=== PATIENT | female | born 1940 | race American Indian/Alaskan Native ===

== ENCOUNTER 2016-12-15 06:05 | Observation (INO) | payer MEDICARE, BC ==
[2016-12-15 06:59] VITALS: BMI 24.3
[2016-12-15] MEDS ORDERED: Methylene Blue 10 mg/ml (1ml) Inj ONE ×2 (07:23→11:24)
--- NOTE | 2016-12-15 09:29 | CP.SDSHP ---
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 EGD/EUS/EMR Pt. Evaluated Today:Candidate for Anesthesia & Procedure: Yes Short Stay Discharge - Short Stay Discharge Admitting Diagnosis/Reason for Visit: DUODENAL ADENOCARCINOMA,CA OF STOMACH Disposition: HOME/ ROUTINE
[2016-12-15 10:03] LABS: BASO % 0.6 % (0.0-2.0); EOS # 0.1 K/uL (0.0-0.7); EOS % 1.3 % (0.0-4.0); HEMOGLOBIN 10.7 g/dL (11.0-16.0); LYMPH # 1.4 K/uL (1.0-4.3); MEAN CORPUSCULAR HEMOGLOBIN 26.2 pg (27.0-31.0); MEAN CORPUSCULAR HGB CONC 32.3 g/dL (33.0-37.0); MEAN PLATELET VOLUME 9.5 fL (7.2-11.7); MONO # 0.9 K/uL (0.0-0.8); MONO % 11.2 % (0.0-10.0); NEUT # 5.2 K/uL (1.8-7.0); NEUT % 68.9 % (50.0-75.0); NRBC % 0.3 % (0.0-2.0); RBC 4.08 Mil/uL (3.80-5.20); RED CELL DISTRIBUTION WIDTH 17.3 % (11.5-14.5)
[2016-12-15] MEDS ORDERED: Etomidate 20 mg/10ml Inj IV ONE (10:06)
[2016-12-15 10:07] LABS: MEAN CELL VOLUME 80.9 fL (81.0-99.0); WHITE BLOOD COUNT 7.6 K/uL (4.8-10.8)
[2016-12-15] MEDS ORDERED: Lidocaine 4% (Laryng-O-Jet) Kit MM ONE (10:13)
[2016-12-15 10:20] LABS: CALCIUM 8.8 mg/dl (8.6-10.4)
[2016-12-15] MEDS ORDERED: Naloxone 0.4 mg/ml Inj (Adult) ONE (12:12)
--- NOTE | 2016-12-15 15:21 | CP.PCM.CON ---
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 Admitted post procedure for observation. Recently has developed cirrhosis with increasing abdominal ascites accumulation. PMH: ESRD DM 2 HTN CAD AFIB CARCINOID TUMOR DUODENUM CIRRHOSIS BREAST CA PSH: AV FISTULA 2 CARDIAC STENTS HYSTERECTOMY IVC FILTER POLYPECTOMIES X 2 Review of Systems - Constitutional Constitutional: Fatigue, Malaise, Weight Loss - EENT Eyes: absent: As Per HPI, Blind Spots, Blurred Vision, Change in Vision, Decreased Night Vision, Diplopia, Discharge, Dry Eye, Exophthalmos, Floaters, Irritation, Itchy Eyes, Loss of Peripheral Vision, Pain, Photophobia, Requires Corrective Lenses, Sees Flashes, Spots in Vision, Tunnel Vision, Other Visual Disturbances, Loss of Vision, Other Ears: absent: As Per HPI, Decreased Hearing, Ear Discharge, Ear Pain, Tinnitus, Abnormal Hearing, Disequilibrium, Dizziness, Other Nose/Mouth/Throat: absent: As Per HPI, Epistaxis, Nasal Congestion, Nasal Discharge, Nasal Obstruction, Nasal Trauma, Nose Pain, Post Nasal Drip, Sinus Pain, Sinus Pressure, Bleeding Gums, Change in Voice, Dental Pain, Dry Mouth, Dysphagia, Halitosis, Hoarsness, Lip Swelling, Mouth Lesions, Mouth Pain, Odynophagia, Sore Throat, Throat Swelling, Tongue Swelling, Facial Pain, Neck Pain, Neck Mass, Other - Breasts Breasts: As Per HPI - Cardiovascular Cardiovascular: Chest Pain, Dyspnea on Exertion, Edema, Irregular Heart Rhythm - Respiratory Respiratory: Cough, Dyspnea on Exertion, Pain with Coughing - Gastrointestinal Gastrointestinal: As Per HPI, Abdominal Pain, Bloating, Nausea - Genitourinary Genitourinary: As Per HPI - Musculoskeletal Musculoskeletal: Muscle Weakness, Myalgias, Stiffness - Integumentary Integumentary: Dry Skin - Neurological Neurological: Weakness - Psychiatric Psychiatric: Depression Past Patient History - Tetanus Immunizations Tetanus Immunization: Unknown - Past Medical History & Family History Past Medical History?: Yes Past Family History: Reviewed and not pertinent - Past Social History Smoking Status: Never Smoked Chewing Tobacco Use: No Cigar Use: No Alcohol: None Drugs: Denies Home Situation {Lives}: Correction - CARDIAC Hx Cardiac Disorders: Yes Hx Cardia Arrhythmia: Yes (A FIB.) Hx Circulatory Problems: Yes (ACUTE ISCHEMIC HEART DISEASE) Hx Heart Attack: No Hx Hypercholesterolemia: Yes Hx Hypertension: Yes Hx Peripheral Vascular Disease: Yes (NICK. 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 Hx Glaucoma: Yes - RENAL Hx Chronic Kidney Disease: Yes Type of Dialysis Access: LEFT ARM SHUNT Date of Last Dialysis Treatment: 12/13/16 Hx Renal Failure: Yes - ENDOCRINE/METABOLIC Hx Endocrine Disorders: Yes Hx Diabetes Mellitus Type 2: Yes Hx Hypothyroidism: Yes - HEMATOLOGICAL/ONCOLOGICAL Hx Blood Transfusions: No - INTEGUMENTARY Hx Dermatological Problems: No - MUSCULOSKELETAL/RHEUMATOLOGICAL Hx Falls: No Hx Fractures: No - GASTROINTESTINAL Hx Gastrointestinal Disorders: Yes Other/Comment: DUODENAL CARCINOMA; CA STOMACH - GENITOURINARY/GYNECOLOGICAL Hx Genitourinary Disorders: Yes Other/Comment: ca-right breast - PSYCHIATRIC Hx Psychophysiologic Disorder: Yes Hx Depression: Yes Hx Emotional Abuse: No Hx Physical Abuse: No - SURGICAL HISTORY Hx Arteriovenous Shunt: Yes (LEFT ARM) Hx Cataract Extraction: Yes ([facility]) Hx Cholecystectomy: Yes Hx Eye Surgery: Yes (DETACHED RETINA RIGHT EYE) Hx Hysterectomy: Yes Hx Vascular Surgery: Yes (LEFT ARM SHUNT) - ANESTHESIA Hx Anesthesia: Yes Hx Anesthesia Reactions: No Hx Malignant Hyperthermia: No Has any member of the family had a problem w/ anesthesia?: No Meds Allergies/Adverse Reactions: Allergies Allergy/AdvReac Type Severity Reaction Status Date / Time No Known Allergies Allergy Verified 12/15/16 06:59 Physical Exam - Constitutional Appears: Older Than Stated Age, Chronically Ill - Head Exam Head Exam: ATRAUMATIC, NORMAL INSPECTION - Eye Exam Eye Exam: EOMI, Normal appearance - Neck Exam Neck exam: Positive for: Normal Inspection. Negative for: Tenderness - Respiratory Exam Respiratory Exam: Rales, NORMAL BREATHING PATTERN - Cardiovascular Exam Cardiovascular Exam: Irregular Rhythm, +S1 - GI/Abdominal Exam GI & Abdominal Exam: Distended, Soft, Tenderness - Extremities Exam Extremities exam: Positive for: tenderness. Negative for: pedal edema - Neurological Exam Neurological exam: Alert, Oriented x3 - Psychiatric Exam Psychiatric exam: Depressed - Skin Skin Exam: Dry, Warm Results - Vital Signs Recent Vital Signs: Last Vital Signs Temp 99.2 F 12/15/16 12:20 Pulse 100 H 12/15/16 12:20 Resp 15 12/15/16 12:20 BP 95/49 L 12/15/16 12:20 Pulse Ox 100 12/15/16 12:20 - Labs Result Diagrams: 12/15/16 10:00 12/15/16 10:00 Labs: Laboratory Results - last 24 hr 12/15/16 12/15/16 12/15/16 06:49 10:00 10:00 WBC 7.6 D RBC 4.08 Hgb 10.7 L Hct 33.0 L MCV 80.9 L D MCH 26.2 L MCHC 32.3 L RDW 17.3 H Plt Count 205 MPV 9.5 Neut % (Auto) 68.9 Lymph % (Auto) 18.0 L Will % (Auto) 11.2 H Eos % (Auto) 1.3 Baso % (Auto) 0.6 Neut # 5.2 Lymph # 1.4 Will # 0.9 H Eos # 0.1 Baso # 0.0 Sodium 135 Potassium 3.7 Chloride 93 L Carbon Dioxide 28 Anion Gap 18 BUN 11 Creatinine 3.3 H Est GFR ( Amer) 16 Est GFR (Non-Af Amer) 14 POC Glucose (mg/dL) 199 H Random Glucose 148 H Calcium 8.8 Assessment & Plan (1) Type 2 diabetes mellitus with diabetic nephropathy Status: Acute (2) Hypertensive chronic kidney disease with stage 5 chronic kidney disease or end stage renal disease Status: Acute (3) End stage renal disease on dialysis Status: Chronic (4) Hypertension Status: Chronic (5) Malignant carcinoid tumor of duodenum Status: Acute - Assessment and Plan (Free Text) Plan: Dialysis TTS Adequate fluid removal Consider paracentesis as ascites severe
[2016-12-15] MEDS ORDERED: Albuterol 0.083% Inhal Sol (2.5 mg/3 mL) UD INH PRN (16:17)
[2016-12-15] MEDS ORDERED: Metoprolol Succinate 25 mg XL Tab PO SCH (16:19)
[2016-12-15] MEDS ORDERED: ALBUTEROL IH SCH (18:00)
[2016-12-15] MEDS ORDERED: Budesonide 0.5 mg/2 ml Inhal Susp UD INH SCH (20:00)
[2016-12-15] MEDS ORDERED: Oxycodone/Acetaminophen 5/325 mg Tab PO PRN (21:12)
[2016-12-15 21:25] LABS: INR 1.4; PROTHROMBIN TIME 15.9 SECONDS (9.7-12.2)
[2016-12-15] MEDS ORDERED: Latanoprost 2.5 ml Opht Soln OU SCH (22:00)
--- NOTE | 2016-12-15 22:32 | CP.PCM.CON ---
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 Patient with recurrent anemia due to occult blood loss while on ASA/Plavix or Effient due to Afib. Had DVT requiring [place] filter two [place] [facility] 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 She was referred to Dr Lindsey for EUS and possible EMR as she was deemed to not be a surgical candidate on referral to Surgical Oncology at [facility]. Patient had successful EMR of duodenal lesion and several gastric nodules this am. Admitted for observation by Dr Lindsey due to bleeding risk. Antiplatelet drugs to be held for two days as per his operative note. (ordered on admission to start in am) No pain, bleeding or melena since admission. Patient has had known HCV for the past twenty years that I have cared for her and due to ribavirin toxicity in the past and dialysis precluded the ability to eradicate the virus until Zepatier was approved and given to patient with success. No known varices or portal hypertension. She is aware the duodenal lesion is cancer and that the EMR may not be curative even though successful. Patient complains of increasing abdominal pain, swelling and distension. Ascites was noted on recent CT Scan. Review of Systems - Cardiovascular Cardiovascular: Edema. absent: Chest Pain, Dyspnea - Respiratory Respiratory: absent: Cough, Dyspnea, Dyspnea on Exertion - Gastrointestinal Gastrointestinal: As Per HPI, Abdominal Pain Past Patient History - Tetanus Immunizations Tetanus Immunization: Unknown - Past Medical History & Family History Past Medical History?: Yes Past Family History: Reviewed and not pertinent - Past Social History Smoking Status: Never Smoked Chewing Tobacco Use: No Cigar Use: No Alcohol: None Drugs: Denies Home Situation {Lives}: Alf - CARDIAC Hx Cardiac Disorders: Yes Hx Cardia Arrhythmia: Yes (A FIB.) Hx Circulatory Problems: Yes (ACUTE ISCHEMIC HEART DISEASE) Hx Heart Attack: No Hx Hypercholesterolemia: Yes Hx Hypertension: Yes Hx Peripheral Vascular Disease: Yes (NICK. 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 Hx Glaucoma: Yes - RENAL Hx Chronic Kidney Disease: Yes Type of Dialysis Access: LEFT ARM SHUNT Date of Last Dialysis Treatment: 12/13/16 Hx Renal Failure: Yes - ENDOCRINE/METABOLIC Hx Endocrine Disorders: Yes Hx Diabetes Mellitus Type 2: Yes Hx Hypothyroidism: Yes - HEMATOLOGICAL/ONCOLOGICAL Hx Anemia: Yes Hx Blood Transfusions: Yes Hx Blood Transfusion Reaction: No Hx Cancer: Yes (Duodenal adenocarcinoma by biopsy 08/2016, Breast Cancer ) Hx Cirrhosis: Yes Hx Hepatitis A: No Hx Hepatitis B: No Hx Hepatitis C: Yes (SVR achieved with Zepatier 2015) Hx Human Immunodeficiency Virus (HIV): No Other/Comment: Gastric carcinoid tumors. Intramucosal adenocarcinoma of duodenum - INTEGUMENTARY Hx Dermatological Problems: No - MUSCULOSKELETAL/RHEUMATOLOGICAL Hx Falls: No Hx Fractures: No - GASTROINTESTINAL Hx Gastrointestinal Disorders: Yes Hx Bowel Surgery: No Hx Clostridium Difficile: Yes (2016) Hx Colitis: No Hx Colostomy: No Hx Constipation: No Hx Crohn's Disease: No Hx Diarrhea: No Hx Diverticulitis: No Hx Esophageal Varices: No Hx Fatty Liver Disease: No Hx Gall Bladder Disease: No Hx Gastritis: No Hx Gastroesophageal Reflux: No Hx Hemorrhoids: Yes Hx Ileostomy: No Hx Irritable Bowel: No Hx Liver Failure: No Hx Nausea: No Hx Pancreatitis: No HX Swallowing Problems: No Hx Ulcer: No Hx Vomiting: No Other/Comment: DUODENAL CARCINOMA; CA STOMACH - GENITOURINARY/GYNECOLOGICAL Hx Genitourinary Disorders: Yes Other/Comment: ca-right breast - PSYCHIATRIC Hx Psychophysiologic Disorder: Yes Hx Depression: Yes Hx Emotional Abuse: No Hx Physical Abuse: No - SURGICAL HISTORY Hx Arteriovenous Shunt: Yes (LEFT ARM) Hx Cataract Extraction: Yes (NICK) Hx Cardiac Catheterization: Yes Hx Cholecystectomy: Yes Hx Eye Surgery: Yes (DETACHED RETINA RIGHT EYE) Hx Hysterectomy: Yes Hx Mastectomy: No (Partial resection of breast tumor) Hx Vascular Surgery: Yes (LEFT ARM SHUNT) - ANESTHESIA Hx Anesthesia: Yes Hx Anesthesia Reactions: No Hx Malignant Hyperthermia: No Has any member of the family had a problem w/ anesthesia?: No Meds Allergies/Adverse Reactions: Allergies Allergy/AdvReac Type Severity Reaction Status Date / Time No Known Allergies Allergy Verified 12/15/16 06:59 - Medications Medications: Current Medications Acetaminophen (Tylenol 325mg Tab) 325 mg PO PRN PRN PRN Reason: Pain, moderate (4-7) Albuterol Sulfate (Albuterol 0.083% Inhal Ayse (2.5 Mg/3 Ml) Ud) 2.5 mg INH RQ6 PRN PRN Reason: Wheezing Aspirin (Ecotrin) 81 mg PO QAM [facility] Budesonide (Pulmicort Respules) 0.5 mg INH RQ12 [facility] Calcium Acetate (Phoslo) 1,334 mg PO TID [facility] Last Admin: 12/15/16 19:00 Dose: Not Given Clopidogrel Bisulfate (Plavix) 75 mg PO QAM [facility] Duloxetine HCl (Cymbalta) 60 mg PO DAILY [facility] Ferric Sodium Gluconate Complex (Ferrlecit) 125 mg IVPB DAILY [facility] Stop: 12/24/16 10:01 Ferrous Sulfate (Feosol) 325 mg PO QAM [facility] Folic Acid (Folic Acid) 1 mg PO QAM [facility] Folic Acid (Folic Acid) 1 mg PO DAILY [facility] Latanoprost (Xalatan Opht) 0 ml OU HS [facility] Last Admin: 12/15/16 21:29 Dose: 2.5 ml Levothyroxine Sodium (Synthroid) 125 mcg PO DAILY@0630 [facility] Metoprolol Succinate (Toprol Xl) 25 mg PO DAILY [facility] Mirtazapine (Remeron) 15 mg PO HS [facility] Last Admin: 12/15/16 21:28 Dose: 15 mg Montelukast Sodium (Singulair) 10 mg PO HS [facility] Last Admin: 12/15/16 21:27 Dose: 10 mg Ondansetron HCl (Zofran Inj) 4 mg IVP Q6 PRN PRN Reason: Nausea/Vomiting Last Admin: 12/15/16 22:11 Dose: 4 mg Oxycodone/Acetaminophen (Percocet 5/325 Mg Tab) 2 tab PO Q4H PRN PRN Reason: Pain, severe (8-10) Stop: 12/18/16 21:13 Pantoprazole Sodium (Protonix Ec Tab) 40 mg PO QAM [facility] Rosuvastatin Calcium (Crestor) 10 mg PO HS [facility] Last Admin: 12/15/16 21:27 Dose: 10 mg Sucralfate (Carafate Tab) 1 gm PO QAM [facility] Physical Exam - Constitutional Appears: No Acute Distress - Head Exam Head Exam: ATRAUMATIC, NORMOCEPHALIC - Eye Exam Eye Exam: EOMI, PERRL - Respiratory Exam Respiratory Exam: NORMAL BREATHING PATTERN - Cardiovascular Exam Cardiovascular Exam: Irregular Rhythm, +S1 - GI/Abdominal Exam GI & Abdominal Exam: Distended, Normal Bowel Sounds, Soft. absent: Tenderness Additional comments: ascites noted but not tense - Rectal Exam Rectal Exam: Deferred - Extremities Exam Extremities exam: Positive for: pedal edema. Negative for: tenderness - Back Exam Back exam: NORMAL INSPECTION - Neurological Exam Neurological exam: Alert, Oriented x3 - Psychiatric Exam Psychiatric exam: Normal Affect, Normal Mood - Skin Skin Exam: Dry, Warm Results - Vital Signs Recent Vital Signs: Last Vital Signs Temp 98.1 F 12/15/16 15:05 Pulse 94 H 12/15/16 15:05 Resp 19 12/15/16 15:05 BP 110/70 12/15/16 15:05 Pulse Ox 100 12/15/16 15:05 - Labs Result Diagrams: 12/16/16 06:56 12/16/16 06:56 Labs: Laboratory Results - last 24 hr 12/15/16 12/15/16 12/15/16 06:49 10:00 10:00 WBC 7.6 D RBC 4.08 Hgb 10.7 L Hct 33.0 L MCV 80.9 L D MCH 26.2 L MCHC 32.3 L RDW 17.3 H Plt Count 205 MPV 9.5 Neut % (Auto) 68.9 Lymph % (Auto) 18.0 L [place] % (Auto) 11.2 H Eos % (Auto) 1.3 Baso % (Auto) 0.6 Neut # 5.2 Lymph # 1.4 [place] # 0.9 H Eos # 0.1 Baso # 0.0 PT INR APTT Sodium 135 Potassium 3.7 Chloride 93 L Carbon Dioxide 28 Anion Gap 18 BUN 11 Creatinine 3.3 H Est GFR ( Amer) 16 Est GFR (Non-Af Amer) 14 POC Glucose (mg/dL) 199 H Random Glucose 148 H Calcium 8.8 12/15/16 12/15/16 12/15/16 16:37 20:55 21:02 WBC RBC Hgb Hct MCV MCH MCHC RDW Plt Count MPV Neut % (Auto) Lymph % (Auto) [place] % (Auto) Eos % (Auto) Baso % (Auto) Neut # Lymph # [place] # Eos # Baso # PT 15.9 H INR 1.4 APTT 38 H Sodium Potassium Chloride Carbon Dioxide Anion Gap BUN Creatinine Est GFR ( Amer) Est GFR (Non-Af Amer) POC Glucose (mg/dL) 169 H 143 H Random Glucose Calcium Assessment & Plan (1) Cirrhosis of liver Assessment and Plan: As noted below. Monitor and surveillance for HCC. Management of fluid status via dialysis. Some ascites noted on prior CT SCan. Status: Chronic Priority: High (2) Hepatitis C Assessment and Plan: Successfully treated with Zepatier and SVR documented on several follow up PCR's Surveillance for HCC advised pending results of duodenal tumor status. Status: Resolved (3) Duodenal adenocarcinoma Assessment and Plan: S/P EMR and resection of lesion today. Hold ASA and other antiplatelet Rx for two full days and resume if H/H is stable Await pathology and f/u per Dr Lindsey. Advise PPI high dose for 1-2 weeks. Status: Acute Priority: High (4) Iron deficiency anemia due to chronic blood loss Assessment and Plan: Likely related to gastroduodenal lesions noted on prior endoscopy and now resected by Dr Lindsey Monitor for bleeding and hold anti-platelet Rx for 2-3 days. Status: Acute Priority: Medium (5) Ascites Assessment and Plan: Ascites likely related to ESRD on HD in conjucntion with known cirrhosis of the liver. Has not had a paracentesis done for diagnostic purposes and would be vehicle for fluid management via IR though regulation through dialysis should be attempted. Patient would also need to be off blood thinners at time of any paracentesis which would be an issue. I discusse having a diagnostic study done while here as she is off meds now, however, she is refusing the procedure at present. Would need to be done off of Effient, ASA, Plavix in the future. Status: Chronic Priority: Medium
--- NOTE | 2016-12-15 23:48 | CP.PCM.HP ---
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 Admitted post procedure for observation. Recently has developed cirrhosis with increasing abdominal ascites accumulation. 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 Patient with recurrent anemia due to occult blood loss while on ASA/ Plavix or Effient due to Afib. Had DVT requiring [place] filter two weeks ago [place] [facility] 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 She was referred to Dr Lindsey for EUS and possible EMR as she was deemed to not be a surgical candidate on referral to Surgical Oncology at [facility]. Patient had successful EMR of duodenal lesion and several gastric nodules this am. Admitted for observation due to bleeding risk. Antiplatelet drugs to be held for two days as per his operative note. (ordered on admission to start in am) No pain, bleeding or melena since admission. Patient has had known HCV for the past twenty years that I have cared for her and due to ribavirin toxicity in the past and dialysis precluded the ability to eradicate the virus until Zepatier was approved and given to patient with success. No known varices or portal hypertension. She is aware the duodenal lesion is cancer and that the EMR may not be curative even though successful. Present on Admission - Present on Admission Any Indicators Present on Admission: Yes Review of Systems - Review of Systems Systems not reviewed;Unavailable: Acuity of Condition - Constitutional Constitutional: Fatigue, Lethargy - EENT Eyes: absent: As Per HPI, Blind Spots, Blurred Vision, Change in Vision, Decreased Night Vision, Diplopia, Discharge, Dry Eye, Exophthalmos, Floaters, Irritation, Itchy Eyes, Loss of Peripheral Vision, Pain, Photophobia, Requires Corrective Lenses, Sees Flashes, Spots in Vision, Tunnel Vision, Other Visual Disturbances, Loss of Vision, Other Nose/Mouth/Throat: absent: As Per HPI, Epistaxis, Nasal Congestion, Nasal Discharge, Nasal Obstruction, Nasal Trauma, Nose Pain, Post Nasal Drip, Sinus Pain, Sinus Pressure, Bleeding Gums, Change in Voice, Dental Pain, Dry Mouth, Dysphagia, Halitosis, Hoarsness, Lip Swelling, Mouth Lesions, Mouth Pain, Odynophagia, Sore Throat, Throat Swelling, Tongue Swelling, Facial Pain, Neck Pain, Neck Mass, Other - Cardiovascular Cardiovascular: absent: As Per HPI, Acrocyanosis, Chest Pain, Chest Pain at Rest , Chest Pain with Activity, Claudication, Diaphoresis, Dyspnea, Dyspnea on Exertion, Edema, Irregular Heart Rhythm, Pain Radiating to Arm/Neck/Jaw, Leg Edema, Leg Ulcers, Lightheadedness, Orthopnea, Palpitations, Paroxysmal Nocturnal Dyspnea, Pedal Edema, Radiating Pain, Rapid Heart Rate, Slow Heart Rate, Syncope, Other - Respiratory Respiratory: absent: As Per HPI, Cough, Dyspnea, Hemoptysis, Dyspnea on Exertion , Wheezing, Snoring, Stridor, Pain on Inspiration, Chest Congestion, Excessive Mucous Production, Change in Mucous Color, Pain with Coughing, Other - Gastrointestinal Gastrointestinal: absent: As Per HPI, Abdominal Pain, Belching, Bloating, Change in Bowel Habits, Change in Stool Character, Coffee Ground Emesis, Constipation, Cramping, Diarrhea, Dyspepsia, Dysphagia, Early Satiety, Excessive Flatus, Fecal Incontinence, Heartburn, Hematemesis, Hematochezia, Loose Stools, Melena, Nausea, Odynophagia, Temesmus, Vomiting, Other - Neurological Neurological: absent: As Per HPI, Abnormal Gait, Abnormal Hearing, Abnormal Movements, Abnormal Speech, Behavioral Changes, Burning Sensations, Confusion, Convulsions, Disequilibrium, Dizziness, Numbness, Focal Weakness, Frequent Falls , Headaches, Lack of Coordination, Loss of Vision, Memory Loss, Paresthesias, Radicular Pain, Restless Legs, Sensory Deficit, Syncope, Tingling, Tremor, Vertigo, Weakness, Other Visual Disturbances, Other - Psychiatric Psychiatric: absent: As Per HPI, Abnormal Sleep Pattern, Anhedonia, Anxiety, Auditory Hallucinations, Behavioral Changes, Change in Appetite, Change in Libido, Confusion, Depression, Difficulty Concentrating, Hallucinations, Homicidal Ideation, Hopelessness, Irritability, Memory Loss, Mood Swings, Panic Attacks, Paranoia, Suicidal Ideation, Visual Hallucinations, Tactile Hallucinations, Other Past Patient History - Tetanus Immunizations Tetanus Immunization: Unknown - Past Medical History & Family History Past Medical History?: Yes Past Family History: Reviewed and not pertinent - Past Social History Smoking Status: Never Smoked Chewing Tobacco Use: No Cigar Use: No Alcohol: None Drugs: Denies Home Situation {Lives}: Fpc - CARDIAC Hx Cardiac Disorders: Yes Hx Cardia Arrhythmia: Yes (A FIB.) Hx Circulatory Problems: Yes (ACUTE ISCHEMIC HEART DISEASE) Hx Heart Attack: No Hx Hypercholesterolemia: Yes Hx Hypertension: Yes Hx Peripheral Vascular Disease: Yes (NICK. 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 Hx Glaucoma: Yes - RENAL Hx Chronic Kidney Disease: Yes Type of Dialysis Access: LEFT ARM SHUNT Date of Last Dialysis Treatment: 12/13/16 Hx Renal Failure: Yes - ENDOCRINE/METABOLIC Hx Endocrine Disorders: Yes Hx Diabetes Mellitus Type 2: Yes Hx Hypothyroidism: Yes - HEMATOLOGICAL/ONCOLOGICAL Hx Blood Transfusions: No - INTEGUMENTARY Hx Dermatological Problems: No - MUSCULOSKELETAL/RHEUMATOLOGICAL Hx Falls: No Hx Fractures: No - GASTROINTESTINAL Hx Gastrointestinal Disorders: Yes Other/Comment: DUODENAL CARCINOMA; CA STOMACH - GENITOURINARY/GYNECOLOGICAL Hx Genitourinary Disorders: Yes Other/Comment: ca-right breast - PSYCHIATRIC Hx Psychophysiologic Disorder: Yes Hx Depression: Yes Hx Emotional Abuse: No Hx Physical Abuse: No - SURGICAL HISTORY Hx Arteriovenous Shunt: Yes (LEFT ARM) Hx Cataract Extraction: Yes (NICK) Hx Cholecystectomy: Yes Hx Eye Surgery: Yes (DETACHED RETINA RIGHT EYE) Hx Hysterectomy: Yes Hx Vascular Surgery: Yes (LEFT ARM SHUNT) - ANESTHESIA Hx Anesthesia: Yes Hx Anesthesia Reactions: No Hx Malignant Hyperthermia: No Has any member of the family had a problem w/ anesthesia?: No Meds Allergies/Adverse Reactions: Allergies Allergy/AdvReac Type Severity Reaction Status Date / Time No Known Allergies Allergy Verified 12/15/16 06:59 Physical Exam - Constitutional Appears: No Acute Distress - Head Exam Head Exam: ATRAUMATIC, NORMAL INSPECTION, NORMOCEPHALIC - Eye Exam Eye Exam: EOMI, Normal appearance, PERRL Pupil Exam: NORMAL ACCOMODATION, PERRL - Respiratory Exam Respiratory Exam: Clear to Auscultation Bilateral, NORMAL BREATHING PATTERN - Cardiovascular Exam Cardiovascular Exam: REGULAR RHYTHM - GI/Abdominal Exam Additional comments: post op - Extremities Exam Additional comments: decreased pulses b/l - Back Exam Back exam: NORMAL INSPECTION - Neurological Exam Neurological exam: Alert, CN II-XII Intact, Normal Gait, Oriented x3, Reflexes Normal Results - Vital Signs Recent Vital Signs: Last Vital Signs Temp 98.1 F 12/15/16 15:05 Pulse 94 H 12/15/16 15:05 Resp 19 12/15/16 15:05 BP 110/70 12/15/16 15:05 Pulse Ox 100 12/15/16 15:05 - Labs Result Diagrams: 12/15/16 10:00 12/15/16 10:00 Labs: Laboratory Results - last 24 hr 12/15/16 12/15/16 12/15/16 06:49 10:00 10:00 WBC 7.6 D RBC 4.08 Hgb 10.7 L Hct 33.0 L MCV 80.9 L D MCH 26.2 L MCHC 32.3 L RDW 17.3 H Plt Count 205 MPV 9.5 Neut % (Auto) 68.9 Lymph % (Auto) 18.0 L [place] % (Auto) 11.2 H Eos % (Auto) 1.3 Baso % (Auto) 0.6 Neut # 5.2 Lymph # 1.4 [place] # 0.9 H Eos # 0.1 Baso # 0.0 PT INR APTT Sodium 135 Potassium 3.7 Chloride 93 L Carbon Dioxide 28 Anion Gap 18 BUN 11 Creatinine 3.3 H Est GFR ( Amer) 16 Est GFR (Non-Af Amer) 14 POC Glucose (mg/dL) 199 H Random Glucose 148 H Calcium 8.8 12/15/16 12/15/16 12/15/16 16:37 20:55 21:02 WBC RBC Hgb Hct MCV MCH MCHC RDW Plt Count MPV Neut % (Auto) Lymph % (Auto) [place] % (Auto) Eos % (Auto) Baso % (Auto) Neut # Lymph # [place] # Eos # Baso # PT 15.9 H INR 1.4 APTT 38 H Sodium Potassium Chloride Carbon Dioxide Anion Gap BUN Creatinine Est GFR ( Amer) Est GFR (Non-Af Amer) POC Glucose (mg/dL) 169 H 143 H Random Glucose Calcium Assessment & Plan (1) PAD (peripheral artery disease) Status: Acute (2) Duodenal adenocarcinoma Status: Acute (3) Hypertensive chronic kidney disease with stage 5 chronic kidney disease or end stage renal disease Status: Acute (4) Malignant carcinoid tumor of duodenum Status: Acute
[2016-12-16] MEDS ORDERED: Levothyroxine 125 MCG TAB PO SCH (06:30)
[2016-12-16 07:11] LABS: BASO # 0.1 K/uL (0.0-0.2); BASO % 0.6 % (0.0-2.0); EOS # 0.1 K/uL (0.0-0.7); EOS % 1.1 % (0.0-4.0); HEMOGLOBIN 10.2 g/dL (11.0-16.0); LYMPH # 1.1 K/uL (1.0-4.3); LYMPH % 10.7 % (20.0-40.0); MEAN CELL VOLUME 79.6 fL (81.0-99.0); MEAN CORPUSCULAR HEMOGLOBIN 26.3 pg (27.0-31.0); MEAN CORPUSCULAR HGB CONC 33.1 g/dL (33.0-37.0); MEAN PLATELET VOLUME 9.6 fL (7.2-11.7); MONO # 0.8 K/uL (0.0-0.8); MONO % 7.6 % (0.0-10.0); NEUT # 8.2 K/uL (1.8-7.0); NRBC % 0.2 % (0.0-2.0); RBC 3.87 Mil/uL (3.80-5.20); RED CELL DISTRIBUTION WIDTH 17.5 % (11.5-14.5); WHITE BLOOD COUNT 10.3 K/uL (4.8-10.8)
[2016-12-16 07:53] LABS: ALBUMIN 2.7 g/dL (3.5-5.0)
[2016-12-16 07:56] LABS: ALB/GLOB RATIO 0.8 (1.0-2.1)
[2016-12-16 07:57] LABS: CALCIUM 8.3 mg/dl (8.6-10.4)
[2016-12-16] MEDS ORDERED: Metoprolol Succinate 25 mg XL Tab PO SCH (10:00)
[2016-12-16] MEDS ORDERED: Pantoprazole 40 mg EC Tab PO SCH (10:00)
[2016-12-16] MEDS ORDERED: Ferric Sodium Gluconat Complex 62.5 mg/5 ml Vial IVPB SCH (10:00)
--- NOTE | 2016-12-16 11:30 | CP.PCM.PN ---
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 Admitted post procedure for observation. Recently has developed cirrhosis with increasing abdominal ascites accumulation. 12/16 Notes reviewed Seen in HD unit on dialysis Low bp asymptomatic Generalized fatigue and weakness Appetite poor Discussed with dialysis nurse - to lower uf goal to 1500ml No cp or palp, no sob at rest, abdominal distention unchanged GI eval noted ROS: As above otherwise ros negative PMH: ESRD DM 2 HTN CAD AFIB CARCINOID TUMOR DUODENUM CIRRHOSIS BREAST CA PSH: AV FISTULA 2 CARDIAC STENTS HYSTERECTOMY IVC FILTER POLYPECTOMIES X 2 Objective - Vital Signs/Intake and Output Vital Signs (last 24 hours): Temp Pulse Resp BP Pulse Ox 97.8 F 96 H 20 89/55 L 99 12/16/16 09:25 12/16/16 10:30 12/16/16 10:30 12/16/16 10:55 12/16/16 09:25 Intake and Output: 12/16/16 12/16/16 06:59 18:59 Intake Total 240 Balance 240 - Medications Medications: Current Medications Acetaminophen (Tylenol 325mg Tab) 325 mg PO PRN PRN PRN Reason: Pain, moderate (4-7) Albuterol Sulfate (Albuterol 0.083% Inhal Ayse (2.5 Mg/3 Ml) Ud) 2.5 mg INH RQ6 PRN PRN Reason: Wheezing Aspirin (Ecotrin) 81 mg PO QAM [facility] Budesonide (Pulmicort Respules) 0.5 mg INH RQ12 [facility] Calcium Acetate (Phoslo) 1,334 mg PO TID [facility] Last Admin: 12/15/16 19:00 Dose: Not Given Clopidogrel Bisulfate (Plavix) 75 mg PO QAM [facility] Duloxetine HCl (Cymbalta) 60 mg PO DAILY [facility] Ferric Sodium Gluconate Complex (Ferrlecit) 125 mg IVPB DAILY [facility] Stop: 12/24/16 10:01 Ferrous Sulfate (Feosol) 325 mg PO QAM [facility] Folic Acid (Folic Acid) 1 mg PO QAM [facility] Folic Acid (Folic Acid) 1 mg PO DAILY [facility] Latanoprost (Xalatan Opht) 0 ml OU HS [facility] Last Admin: 07/28/17 21:29 Dose: 2.5 ml Levothyroxine Sodium (Synthroid) 125 mcg PO DAILY@0630 [facility] Last Admin: 12/16/16 05:36 Dose: 125 mcg Metoprolol Succinate (Toprol Xl) 25 mg PO DAILY [facility] Mirtazapine (Remeron) 15 mg PO [facility] Last Admin: 12/15/16 21:28 Dose: 15 mg Montelukast Sodium (Singulair) 10 mg PO [facility] Last Admin: 12/15/16 21:27 Dose: 10 mg Ondansetron HCl (Zofran Inj) 4 mg IVP Q6 PRN PRN Reason: Nausea/Vomiting Last Admin: 12/16/16 05:36 Dose: 4 mg Oxycodone/Acetaminophen (Percocet 5/325 Mg Tab) 2 tab PO Q4H PRN PRN Reason: Pain, severe (8-10) Stop: 12/18/16 21:13 Pantoprazole Sodium (Protonix Ec Tab) [facility] [place] Rosuvastatin Calcium (Crestor) 10 mg PO [facility] Last Admin: 12/15/16 21:27 Dose: 10 mg Sucralfate (Carafate Tab) 1 gm PO QAM [facility] - Labs Labs: 12/16/16 06:56 12/16/16 06:56 PT 15.9 SECONDS (9.7-12.2) H 12/15/16 20:55 INR 1.4 12/15/16 20:55 APTT 38 SECONDS (21-34) H 12/15/16 20:55 - Constitutional Appears: Non-toxic, Chronically Ill - Head Exam Head Exam: ATRAUMATIC, NORMAL INSPECTION - Eye Exam Eye Exam: EOMI, Normal appearance - ENT Exam ENT Exam: Mucous Membranes Moist, Normal Oropharynx - Neck Exam Neck Exam: absent: Lymphadenopathy, Thyromegaly - Respiratory Exam Respiratory Exam: NORMAL BREATHING PATTERN. absent: Rales, Wheezes - Cardiovascular Exam Cardiovascular Exam: +S1, +S2. absent: Rubs - GI/Abdominal Exam GI & Abdominal Exam: Distended, Soft, Normal Bowel Sounds - Extremities Exam Extremities Exam: Pedal Edema. absent: Tenderness - Neurological Exam Neurological Exam: Alert, Awake, Oriented x3 - Skin Skin Exam: Dry, Intact Assessment and Plan (1) Hypertensive chronic kidney disease with stage 5 chronic kidney disease or end stage renal disease Status: Acute (2) Iron deficiency anemia due to chronic blood loss Status: Acute (3) Malignant carcinoid tumor of duodenum Status: Acute (4) Type 2 diabetes mellitus with diabetic nephropathy Status: Acute (5) Hepatitis C Status: Resolved (6) End stage renal disease on dialysis Status: Chronic - Assessment and Plan (Free Text) Assessment: Tolerating dialysis well Decrease fluid removal to 1500ml for hypotension Monitor bp on dialysis Follow gi evaluation Continue current meds
--- NOTE | 2016-12-16 12:34 | CP.PCM.PN ---
Subjective - Date & Time of Evaluation Date of Evaluation: 12/16/16 Time of Evaluation: 12:31 - Subjective Subjective: Patient seen in dialysis today. She complains of some diffuse abdominal discomfort and swelling. Again discussed option for paracentesis prior to discharge since she is currently off blood thinners. She is refusing at this time and is scheduled for discharge this weekend. No melena or bleeding. Objective - Vital Signs/Intake and Output Vital Signs (last 24 hours): Temp Pulse Resp BP Pulse Ox 97.8 F 96 H 20 89/55 L 99 12/16/16 09:25 12/16/16 10:30 12/16/16 10:30 12/16/16 10:55 12/16/16 09:25 Intake and Output: 12/16/16 12/16/16 06:59 18:59 Intake Total 240 Balance 240 - Medications Medications: Current Medications Acetaminophen (Tylenol 325mg Tab) 325 mg PO PRN PRN PRN Reason: Pain, moderate (4-7) Albuterol Sulfate (Albuterol 0.083% Inhal Ayse (2.5 Mg/3 Ml) Ud) 2.5 mg INH RQ6 PRN PRN Reason: Wheezing Aspirin (Ecotrin) 81 mg PO QAM [facility] Budesonide (Pulmicort Respules) 0.5 mg INH RQ12 [facility] Calcium Acetate (Phoslo) 1,334 mg PO TID [facility] Last Admin: 12/15/16 19:00 Dose: Not Given Clopidogrel Bisulfate (Plavix) 75 mg PO QAM [facility] Duloxetine HCl (Cymbalta) 60 mg PO DAILY [facility] Ferric Sodium Gluconate Complex (Ferrlecit) 125 mg IVPB DAILY [facility] Stop: 12/24/16 10:01 Ferrous Sulfate (Feosol) 325 mg PO QAM [facility] Folic Acid (Folic Acid) 1 mg PO QAM [facility] Folic Acid (Folic Acid) 1 mg PO DAILY [facility] Latanoprost (Xalatan Opht) 0 ml OU HS [facility] Last Admin: 12/15/16 21:29 Dose: 2.5 ml Levothyroxine Sodium (Synthroid) 125 mcg PO DAILY@0630 [facility] Last Admin: 12/16/16 05:36 Dose: 125 mcg Metoprolol Succinate (Toprol Xl) 25 mg PO DAILY [facility] Mirtazapine (Remeron) 15 mg PO HS [facility] Last Admin: 12/15/16 21:28 Dose: 15 mg Montelukast Sodium (Singulair) 10 mg PO HS [facility] Last Admin: 12/15/16 21:27 Dose: 10 mg Ondansetron HCl (Zofran Inj) 4 mg IVP Q6 PRN PRN Reason: Nausea/Vomiting Last Admin: 12/16/16 05:36 Dose: 4 mg Oxycodone/Acetaminophen (Percocet 5/325 Mg Tab) 2 tab PO Q4H PRN PRN Reason: Pain, severe (8-10) Stop: 12/18/16 21:13 Pantoprazole Sodium (Protonix Ec Tab) 40 mg PO QAM [facility] Rosuvastatin Calcium (Crestor) 10 mg PO HS [facility] Last Admin: 12/15/16 21:27 Dose: 10 mg Sucralfate (Carafate Tab) 1 gm PO QAM [facility] - Labs Labs: 12/16/16 06:56 12/16/16 06:56 PT 15.9 SECONDS (9.7-12.2) H 12/15/16 20:55 INR 1.4 12/15/16 20:55 APTT 38 SECONDS (21-34) H 12/15/16 20:55 - Constitutional Appears: No Acute Distress - Head Exam Head Exam: ATRAUMATIC, NORMOCEPHALIC - Eye Exam Eye Exam: EOMI, PERRL - Respiratory Exam Respiratory Exam: NORMAL BREATHING PATTERN - Cardiovascular Exam Cardiovascular Exam: Irregular Rhythm, +S1 - GI/Abdominal Exam GI & Abdominal Exam: Soft, Normal Bowel Sounds. absent: Tenderness, Hernia, Mass, Organomegaly Additional comments: moderate ascites but not tense, obese. - Extremities Exam Extremities Exam: Pedal Edema. absent: Calf Tenderness, Tenderness - Neurological Exam Neurological Exam: Alert, Awake, Oriented x3 Assessment and Plan (1) Cirrhosis of liver Status: Chronic (2) Hepatitis C Status: Resolved (3) Duodenal adenocarcinoma Assessment & Plan: No bleeding post EMR by Dr madrid Blood thinners on hold until sunday or when deemed to restart per interventional GI Awaiting surgical pathology. Status: Acute (4) Iron deficiency anemia due to chronic blood loss Status: Acute (5) Ascites Assessment & Plan: Consider paracentesis if patient agreeable. Fluid for diagnostic studies. Study needs to be done off anti-platelet/anti-coagulant meds. Patient wants "no more procedures done when discussed in dialysis with her. Status: Chronic
--- NOTE | 2016-12-16 13:51 | CP.PCM.CON ---
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 Patient's antiplatelet therapy has been held since two days prior to the procedure but given the nature of the procedure and the patient's complex medical history, decision was made to admit for observation. Since admission she has complained of mild, diffuse abdominal pain, distention and constipation. Ascites is suspected and paracentesis was offered but patient has refused thusfar. She received HD today and is seen in the HD suite during examination. No other events overnight. PMHx: See HPI along with gout, HLD, hypothyroidism, sciatica PSHx: PCI (09/01), IVC filter FHx: Mother - [place]; Father - HTN Social: Denies tobacco, EtOH or illicit drug use 12 system ROS performed and negative except where stated. Past Patient History - Tetanus Immunizations Tetanus Immunization: Unknown - Past Medical History & Family History Past Medical History?: Yes Past Family History: Reviewed and not pertinent - Past Social History Smoking Status: Never Smoked Chewing Tobacco Use: No Cigar Use: No Alcohol: None Drugs: Denies Home Situation {Lives}: [facility] - CARDIAC Hx Cardiac Disorders: Yes Hx Cardia Arrhythmia: Yes (A FIB.) Hx Circulatory Problems: Yes (ACUTE ISCHEMIC HEART DISEASE) Hx Heart Attack: No Hx Hypercholesterolemia: Yes Hx Hypertension: Yes Hx Peripheral Vascular Disease: Yes (NICK. 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 Hx Glaucoma: Yes - RENAL Hx Chronic Kidney Disease: Yes Type of Dialysis Access: LEFT ARM SHUNT Date of Last Dialysis Treatment: 12/13/16 Hx Renal Failure: Yes - ENDOCRINE/METABOLIC Hx Endocrine Disorders: Yes Hx Diabetes Mellitus Type 2: Yes Hx Hypothyroidism: Yes - HEMATOLOGICAL/ONCOLOGICAL Hx Anemia: Yes Hx Blood Transfusions: Yes Hx Blood Transfusion Reaction: No Hx Cancer: Yes (Duodenal adenocarcinoma by biopsy 08/2016, Breast Cancer ) Hx Cirrhosis: Yes Hx Hepatitis A: No Hx Hepatitis B: No Hx Hepatitis C: Yes (SVR achieved with Zepatier 2015) Hx Human Immunodeficiency Virus (HIV): No Other/Comment: Gastric carcinoid tumors. Intramucosal adenocarcinoma of duodenum - INTEGUMENTARY Hx Dermatological Problems: No - MUSCULOSKELETAL/RHEUMATOLOGICAL Hx Falls: No Hx Fractures: No - GASTROINTESTINAL Hx Gastrointestinal Disorders: Yes Hx Bowel Surgery: No Hx Clostridium Difficile: Yes (2016) Hx Colitis: No Hx Colostomy: No Hx Constipation: No Hx Crohn's Disease: No Hx Diarrhea: No Hx Diverticulitis: No Hx Esophageal Varices: No Hx Fatty Liver Disease: No Hx Gall Bladder Disease: No Hx Gastritis: No Hx Gastroesophageal Reflux: No Hx Hemorrhoids: Yes Hx Ileostomy: No Hx Irritable Bowel: No Hx Liver Failure: No Hx Nausea: No Hx Pancreatitis: No HX Swallowing Problems: No Hx Ulcer: No Hx Vomiting: No Other/Comment: DUODENAL CARCINOMA; CA STOMACH - GENITOURINARY/GYNECOLOGICAL Hx Genitourinary Disorders: Yes Other/Comment: ca-right breast - PSYCHIATRIC Hx Psychophysiologic Disorder: Yes Hx Depression: Yes Hx Emotional Abuse: No Hx Physical Abuse: No - SURGICAL HISTORY Hx Arteriovenous Shunt: Yes (LEFT ARM) Hx Cataract Extraction: Yes (NICK) Hx Cardiac Catheterization: Yes Hx Cholecystectomy: Yes Hx Eye Surgery: Yes (DETACHED RETINA RIGHT EYE) Hx Hysterectomy: Yes Hx Mastectomy: No (Partial resection of breast tumor) Hx Vascular Surgery: Yes (LEFT ARM SHUNT) - ANESTHESIA Hx Anesthesia: Yes Hx Anesthesia Reactions: No Hx Malignant Hyperthermia: No Has any member of the family had a problem w/ anesthesia?: No Meds Allergies/Adverse Reactions: Allergies Allergy/AdvReac Type Severity Reaction Status Date / Time No Known Allergies Allergy Verified 12/15/16 06:59 - Medications Medications: Current Medications Acetaminophen (Tylenol 325mg Tab) 325 mg PO PRN PRN PRN Reason: Pain, moderate (4-7) Albuterol Sulfate (Albuterol 0.083% Inhal Ayse (2.5 Mg/3 Ml) Ud) 2.5 mg INH RQ6 PRN PRN Reason: Wheezing Aspirin (Ecotrin) 81 mg PO QAM [facility] Budesonide (Pulmicort Respules) 0.5 mg INH RQ12 [facility] Calcium Acetate (Phoslo) 1,334 mg PO TID [facility] Last Admin: 12/15/16 19:00 Dose: Not Given Clopidogrel Bisulfate (Plavix) 75 mg PO QAM [facility] Duloxetine HCl (Cymbalta) 60 mg PO DAILY [facility] Ferric Sodium Gluconate Complex (Ferrlecit) 125 mg IVPB DAILY [facility] Stop: 12/24/16 10:01 Ferrous Sulfate (Feosol) 325 mg PO QAM [facility] Folic Acid (Folic Acid) 1 mg PO QAM [facility] Folic Acid (Folic Acid) 1 mg PO DAILY [facility] Latanoprost (Xalatan Opht) 0 ml OU [facility] Last Admin: 12/15/16 21:29 Dose: 2.5 ml Levothyroxine Sodium (Synthroid) 125 mcg PO DAILY@0630 [facility] Last Admin: 12/16/16 05:36 Dose: 125 mcg Metoprolol Succinate (Toprol Xl) 25 mg PO DAILY [facility] Mirtazapine (Remeron) 15 mg PO [facility] Last Admin: 12/15/16 21:28 Dose: 15 mg Montelukast Sodium (Singulair) 10 mg PO [facility] Last Admin: 12/15/16 21:27 Dose: 10 mg Ondansetron HCl (Zofran Inj) 4 mg IVP Q6 PRN PRN Reason: Nausea/Vomiting Last Admin: 12/16/16 05:36 Dose: 4 mg Oxycodone/Acetaminophen (Percocet 5/325 Mg Tab) 2 tab PO Q4H PRN PRN Reason: Pain, severe (8-10) Stop: 12/18/16 21:13 Pantoprazole Sodium (Pro[facility]ix Ec Tab) [facility] [place] Rosuvastatin Calcium (Crestor) 10 mg PO [facility] Last Admin: 12/15/16 21:27 Dose: 10 mg Sucralfate (Carafate Tab) 1 gm [facility] [place] Exam - Constitutional Appears: Non-toxic, No Acute Distress - Eye Exam Eye Exam: EOMI, PERRL - ENT Exam ENT Exam: Mucous Membranes Moist - Respiratory Exam Respiratory Exam: Clear to Auscultation Bilateral. absent: Rales, Rhonchi, Wheezes - Cardiovascular Exam Cardiovascular Exam: Irregular Rhythm, +S1, +S2 - GI/Abdominal Exam GI & Abdominal Exam: Distended, Normal Bowel Sounds, Soft, Tenderness. absent: Firm, Guarding, Organomegaly, Rigid - Extremities Exam Additional comments: 1-2+ LE edema B/L - Neurological Exam Neurological exam: Alert, Oriented x3 - Psychiatric Exam Psychiatric exam: Normal Affect, Normal Mood - Skin Skin Exam: Dry, Warm Results - Vital Signs Recent Vital Signs: Last Vital Signs Temp 97.8 F 12/16/16 09:25 Pulse 96 H 12/16/16 10:30 Resp 20 12/16/16 10:30 BP 89/55 L 12/16/16 10:55 Pulse Ox 99 12/16/16 09:25 - Labs Result Diagrams: 12/16/16 06:56 12/16/16 06:56 Labs: Laboratory Results - last 24 hr 12/15/16 12/15/16 12/15/16 16:37 20:55 21:02 WBC RBC Hgb Hct MCV MCH MCHC RDW Plt Count MPV Neut % (Auto) Lymph % (Auto) [place] % (Auto) Eos % (Auto) Baso % (Auto) Neut # Lymph # [place] # Eos # Baso # PT 15.9 H INR 1.4 APTT 38 H Sodium Potassium Chloride Carbon Dioxide Anion Gap BUN Creatinine Est GFR ( Amer) Est GFR (Non-Af Amer) POC Glucose (mg/dL) 169 H 143 H Random Glucose Calcium Total Bilirubin AST ALT Alkaline Phosphatase Total Protein Albumin Globulin Albumin/Globulin Ratio 12/16/16 12/16/16 12/16/16 06:56 06:56 07:22 WBC 10.3 RBC 3.87 Hgb 10.2 L Hct 30.8 L MCV 79.6 L MCH 26.3 L MCHC 33.1 RDW 17.5 H Plt Count 189 MPV 9.6 Neut % (Auto) 80.0 H Lymph % (Auto) 10.7 L [place] % (Auto) 7.6 Eos % (Auto) 1.1 Baso % (Auto) 0.6 Neut # 8.2 H Lymph # 1.1 [place] # 0.8 Eos # 0.1 Baso # 0.1 PT INR APTT Sodium 133 Potassium 4.1 Chloride 92 L Carbon Dioxide 30 Anion Gap 15 BUN 13 Creatinine 3.9 H Est GFR ( Amer) 14 Est GFR (Non-Af Amer) 11 POC Glucose (mg/dL) 162 H Random Glucose 146 H Calcium 8.3 L Total Bilirubin 0.7 AST 19 ALT 23 Alkaline Phosphatase 58 Total Protein 5.9 L Albumin 2.7 L Globulin 3.2 Albumin/Globulin Ratio 0.8 L 12/16/16 11:26 WBC RBC Hgb Hct MCV MCH MCHC RDW Plt Count MPV Neut % (Auto) Lymph % (Auto) [place] % (Auto) Eos % (Auto) Baso % (Auto) Neut # Lymph # [place] # Eos # Baso # PT INR APTT Sodium Potassium Chloride Carbon Dioxide Anion Gap BUN Creatinine Est GFR ( Amer) Est GFR (Non-Af Amer) POC Glucose (mg/dL) 121 H Random Glucose Calcium Total Bilirubin AST ALT Alkaline Phosphatase Total Protein Albumin Globulin Albumin/Globulin Ratio Assessment & Plan - Assessment and Plan (Free Text) Assessment: Patient is a 76yo female with PMHx significant for HCV cirrhosis s/p SVR with Zepatier, ESRD on HD, AFib, DVT s/p IVC filter who was admitted to the hospital following EGD/EUS and EMR of 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 -Duodenal adenocarcinoma -Gastric carcinoid -HCV in SVR s/p Zepatier therapy -ESRD on HD -AFib -H/O DVT with IVC placement Plan: -Pt tolerated procedure well -No evidence of acute GI bleeding noted following procedure -Abdominal pain likely related to suspected ascites, constipation which can be treated with bowel regimen -Refusing paracentesis presently -Antiplatelet therapy to resume Sunday -Outpt f/u with Dr Lindsey - Date & Time Date: 12/16/16 Time: 11:50 <Jean Pierre Chow MD - Last Filed: 12/16/16 16:01> Meds - Medications Medications: Current Medications Acetaminophen (Tylenol 325mg Tab) 325 mg PO PRN PRN PRN Reason: Pain, moderate (4-7) Albuterol Sulfate (Albuterol 0.083% Inhal Ayse (2.5 Mg/3 Ml) Ud) 2.5 mg INH RQ6 PRN PRN Reason: Wheezing Aspirin (Ecotrin) 81 mg PO QAM [facility] Budesonide (Pulmicort Respules) 0.5 mg INH RQ12 [facility] Calcium Acetate (Phoslo) 1,334 mg PO TID [facility] Last Admin: 12/16/16 14:44 Dose: Not Given Clopidogrel Bisulfate (Plavix) 75 mg PO QAM [facility] Duloxetine HCl (Cymbalta) 60 mg PO DAILY [facility] Last Admin: 12/16/16 14:41 Dose: 60 mg Ferric Sodium Gluconate Complex (Ferrlecit) 125 mg IVPB DAILY [facility] Stop: 12/24/16 10:01 Last Admin: 12/16/16 14:52 Dose: 125 mg Ferrous Sulfate (Feosol) [facility] [place] Admin: 12/16/16 14:42 Dose: 325 mg Folic Acid (Folic Acid) 1 [facility] [place] Last Admin: 12/16/16 14:42 Dose: 1 mg Folic Acid (Folic Acid) 1 mg PO DAILY [facility] Last Admin: 12/16/16 14:43 Dose: Not Given Latanoprost (Xalatan Opht) 0 ml OU [facility] Last Admin: 12/15/16 21:29 Dose: 2.5 ml Levothyroxine Sodium (Synthroid) 125 mcg PO DAILY@30 [facility] Last Admin: 12/16/16 05:36 Dose: 125 mcg Metoprolol Succinate (Toprol Xl) 25 mg PO DAILY [facility] Mirtazapine (Remeron) 15 mg PO [facility] Last Admin: 12/15/16 21:28 Dose: 15 mg Montelukast Sodium (Singulair) 10 mg PO [facility] Last Admin: 12/15/16 21:27 Dose: 10 mg Ondansetron HCl (Zofran Inj) 4 mg IVP Q6 PRN PRN Reason: Nausea/Vomiting Last Admin: 12/16/16 05:36 Dose: 4 mg Oxycodone/Acetaminophen (Percocet 5/325 Mg Tab) 2 tab PO Q4H PRN PRN Reason: Pain, severe (8-10) Stop: 12/18/16 21:13 Last Admin: 12/16/16 14:50 Dose: 2 tab Pantoprazole Sodium (Protonix Ec Tab) 40 [facility] [place] Last Admin: 12/16/16 14:50 Dose: 40 mg Rosuvastatin Calcium (Crestor) 10 mg PO [facility] Last Admin: 12/15/16 21:27 Dose: 10 mg Sucralfate (Carafate Tab) 1 gm [facility] [place] Last Admin: 12/16/16 14:42 Dose: 1 gm Results - Vital Signs Recent Vital Signs: Last Vital Signs Temp 97.1 F L 12/16/16 12:55 Pulse 94 H 12/16/16 12:55 Resp 18 12/16/16 12:55 BP 114/63 12/16/16 12:55 Pulse Ox 99 12/16/16 12:55 - Labs Result Diagrams: 12/16/16 06:56 12/16/16 06:56 Labs: Laboratory Results - last 24 hr 12/15/16 12/15/16 12/15/16 16:37 20:55 21:02 WBC RBC Hgb Hct MCV MCH MCHC RDW Plt Count MPV Neut % (Auto) Lymph % (Auto) [place] % (Auto) Eos % (Auto) Baso % (Auto) Neut # Lymph # [place] # Eos # Baso # PT 15.9 H INR 1.4 APTT 38 H Sodium Potassium Chloride Carbon Dioxide Anion Gap BUN Creatinine Est GFR ( Amer) Est GFR (Non-Af Amer) POC Glucose (mg/dL) 169 H 143 H Random Glucose Calcium Total Bilirubin AST ALT Alkaline Phosphatase Total Protein Albumin Globulin Albumin/Globulin Ratio 12/16/16 12/16/16 12/16/16 06:56 06:56 07:22 WBC 10.3 RBC 3.87 Hgb 10.2 L Hct 30.8 L MCV 79.6 L MCH 26.3 L MCHC 33.1 RDW 17.5 H Plt Count 189 MPV 9.6 Neut % (Auto) 80.0 H Lymph % (Auto) 10.7 L [place] % (Auto) 7.6 Eos % (Auto) 1.1 Baso % (Auto) 0.6 Neut # 8.2 H Lymph # 1.1 [place] # 0.8 Eos # 0.1 Baso # 0.1 PT INR APTT Sodium 133 Potassium 4.1 Chloride 92 L Carbon Dioxide 30 Anion Gap 15 BUN 13 Creatinine 3.9 H Est GFR ( Amer) 14 Est GFR (Non-Af Amer) 11 POC Glucose (mg/dL) 162 H Random Glucose 146 H Calcium 8.3 L Total Bilirubin 0.7 AST 19 ALT 23 Alkaline Phosphatase 58 Total Protein 5.9 L Albumin 2.7 L Globulin 3.2 Albumin/Globulin Ratio 0.8 L 12/16/16 11:26 WBC RBC Hgb Hct MCV MCH MCHC RDW Plt Count MPV Neut % (Auto) Lymph % (Auto) [place] % (Auto) Eos % (Auto) Baso % (Auto) Neut # Lymph # [place] # Eos # Baso # PT INR APTT Sodium Potassium Chloride Carbon Dioxide Anion Gap BUN Creatinine Est GFR ( Amer) Est GFR (Non-Af Amer) POC Glucose (mg/dL) 121 H Random Glucose Calcium Total Bilirubin AST ALT Alkaline Phosphatase Total Protein Albumin Globulin Albumin/Globulin Ratio Attending/Attestation - Attestation I have personally seen and examined this patient.: Yes I have fully participated in the care of the patient.: Yes I have reviewed all pertinent clinical information: Yes Notes (Text): 12/16/16 15:53 Patient seen with GI fellow. 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 Tolerated procedure well. To follow biopsy and to restart anti platelets. Should follow with primary GI and Dr Lindsey. Thank you for letting us participate in the care of your patient
[2016-12-16 19:40] VITALS: BP 91/61; PULSE 103; RESP 20; TEMP 98.3; O2SAT 100
--- NOTE | 2016-12-16 22:41 | CP.PCM.DIS ---
Provider - Provider Date of Admission: 12/15/16 11:46 Attending physician: Terry Jackson MD Time Spent in preparation of Discharge (in minutes): 35 Diagnosis - Discharge Diagnosis (1) PAD (peripheral artery disease) Status: Acute (2) Duodenal adenocarcinoma Status: Acute Priority: High (3) Hypertensive chronic kidney disease with stage 5 chronic kidney disease or end stage renal disease Status: Acute (4) Malignant carcinoid tumor of duodenum Status: Acute Hospital Course - Lab Results Lab Results: Most Recent Lab Values WBC 10.3 K/uL (4.8-10.8) 12/16/16 06:56 RBC 3.87 Mil/uL (3.80-5.20) 12/16/16 06:56 Hgb 10.2 g/dL (11.0-16.0) L 12/16/16 06:56 Hct 30.8 % (34.0-47.0) L 12/16/16 06:56 MCV 79.6 fL (81.0-99.0) L 12/16/16 06:56 MCH 26.3 pg (27.0-31.0) L 12/16/16 06:56 MCHC 33.1 g/dL (33.0-37.0) 12/16/16 06:56 RDW 17.5 % (11.5-14.5) H 12/16/16 06:56 Plt Count 189 K/uL (130-400) 12/16/16 06:56 MPV 9.6 fL (7.2-11.7) 12/16/16 06:56 Neut % (Auto) 80.0 % (50.0-75.0) H 12/16/16 06:56 Lymph % (Auto) 10.7 % (20.0-40.0) L 12/16/16 06:56 Addison % (Auto) 7.6 % (0.0-10.0) 12/16/16 06:56 Eos % (Auto) 1.1 % (0.0-4.0) 12/16/16 06:56 Baso % (Auto) 0.6 % (0.0-2.0) 12/16/16 06:56 Neut # 8.2 K/uL (1.8-7.0) H 12/16/16 06:56 Lymph # 1.1 K/uL (1.0-4.3) 12/16/16 06:56 Addison # 0.8 K/uL (0.0-0.8) 12/16/16 06:56 Eos # 0.1 K/uL (0.0-0.7) 12/16/16 06:56 Baso # 0.1 K/uL (0.0-0.2) 12/16/16 06:56 PT 15.9 SECONDS (9.7-12.2) H 12/15/16 20:55 INR 1.4 12/15/16 20:55 APTT 38 SECONDS (21-34) H 12/15/16 20:55 Sodium 133 mmol/L (132-148) 12/16/16 06:56 Potassium 4.1 mmol/L (3.6-5.2) 12/16/16 06:56 Chloride 92 mmol/L (98-107) L 12/16/16 06:56 Carbon Dioxide 30 mmol/L (22-30) 12/16/16 06:56 Anion Gap 15 (10-20) 12/16/16 06:56 BUN 13 mg/dL (7-17) 12/16/16 06:56 Creatinine 3.9 MG/DL (0.7-1.2) H 12/16/16 06:56 Est GFR ( Amer) 14 12/16/16 06:56 Est GFR (Non-Af Amer) 11 12/16/16 06:56 POC Glucose (mg/dL) 178 mg/dL (65-110) H 12/16/16 16:39 Random Glucose 146 mg/dL (65-105) H 12/16/16 06:56 Calcium 8.3 mg/dl (8.6-10.4) L 12/16/16 06:56 Total Bilirubin 0.7 mg/dL (0.2-1.3) 12/16/16 06:56 AST 19 U/L (14-36) 12/16/16 06:56 ALT 23 U/L (9-52) 12/16/16 06:56 Alkaline Phosphatase 58 U/L (38-126) 12/16/16 06:56 Total Protein 5.9 g/dL (6.3-8.3) L 12/16/16 06:56 Albumin 2.7 g/dL (3.5-5.0) L 12/16/16 06:56 Globulin 3.2 gm/dL (2.2-3.9) 12/16/16 06:56 Albumin/Globulin Ratio 0.8 (1.0-2.1) L 12/16/16 06:56 - Hospital Course Hospital Course: pt is for transfer back to [facility], is feeling better, no complications after procedure gastric adenoma removal, s/p angioplasty. denies any chest pain , nausea, vomitting Discharge Exam - Head Exam Head Exam: ATRAUMATIC, NORMOCEPHALIC - Eye Exam Eye Exam: EOMI, Normal appearance, PERRL Pupil Exam: NORMAL ACCOMODATION, PERRL - ENT Exam ENT Exam: Mucous Membranes Moist - Respiratory Exam Respiratory Exam: Clear to PA & Lateral, NORMAL BREATHING PATTERN - Cardiovascular Exam Cardiovascular Exam: REGULAR RHYTHM, +S1, +S2 - Skin Skin Exam: Dry, Normal Color Discharge Plan - Follow Up Plan Condition: GOOD Disposition: REHAB FACILITY/REHAB UNIT Instructions: Chronic Kidney Disease (DC), Diabetes Mellitus Type 2 in Adults ( DC) Additional Instructions: pt ok to go back to [facility] as per Dr Jackson. Referrals: Terry Jackson MD [Family Provider] -
== END 2016-12-16 20:45 ==
LOC: C.ENDO 06:05 → C.9E 11:46 → C.3T 13:41 → UNDODISOB 14:10
PROVIDERS: ADMIT Internal Medicine; ATTEND Internal Medicine
DX: K31.7 Polyp of stomach and duodenum (principal); K44.9 Diaphragmatic hernia without obstruction or gangrene; K59.00 Constipation, unspecified
CPT/HCPCS: 36415; 43270; 80048; 80053; 82948; 85025; 85610; 85730; 88305; 88313; 88342; 96374; 96375; 96376; G0257; G0378; J2405; J2916; J7030; Q9968